=== PATIENT | female | born 1995 | race Caucasian/White ===

== ENCOUNTER 2016-09-08 23:55 | Emergency (ER) | payer MEDICAID ==
[~2016-09-08] VITALS: Ht 149.9 cm; Wt 77.1 kg
--- NOTE | 2016-09-09 00:10 | NUR ---
To bed 8 a 21 yo female bibself with c/o stabbing pain on medial chest x1 week, worse today with pain score 6/10. Patient is aaox4, ambulatory. VSS. No s/s of acute distress. Breathing even and unlabored. Skin warm and dry. Gowned. 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 Awaiting or er md bennett.
--- NOTE | 2016-09-09 00:12 | NUR ---
Dr Serna at bedside for eval.
[2016-09-09] MEDS ORDERED: ASPIRIN 81 MG TAB.CHEW PO ONE (00:30)
--- NOTE | 2016-09-09 00:33 | NUR ---
started a saline lock on lac g18, blood draw done and sent to lab.
[2016-09-09] MEDS ORDERED: ASPIRIN 81 MG TAB.CHEW ONE (00:35)
--- NOTE | 2016-09-09 00:41 | NUR ---
emt for ekg at bedside.
[2016-09-09 00:48] LABS: BASOPHILS % (AUTO) 0.4 % (0.0-2.0); EOSINOPHILS # (AUTO) 0.4 /CMM (0.0-0.7); EOSINOPHILS % (AUTO) 3.2 % (0.0-6.0); HEMATOCRIT 41 % (33-45); HEMOGLOBIN 13.4 g/dL (11.5-14.8); LYMPHOCYTES # (AUTO) 5.1 /CMM (0.8-4.8); LYMPHOCYTES % (AUTO) 45.8 % (20.0-44.0); MEAN CORPUSCULAR HEMOGLOBIN 29 PG (26.0-33.0); MEAN CORPUSCULAR HGB CONC 33 g/dl (31.0-36.0); MEAN CORPUSCULAR VOLUME 88 fL (82-100); MONOCYTES # (AUTO) 0.5 /CMM (0.1-1.30); MONOCYTES % (AUTO) 4.4 % (2.0-12.0); NEUTROPHILS # (AUTO) 5.1 /CMM (1.8-8.9); NEUTROPHILS % (AUTO) 46.2 % (43.0-81.0); PLATELET COUNT (AUTO) 367 /CMM (150-450); RDW COEFFICIENT OF VARIATION 14.1 (11.5-15.0); RED BLOOD CELL COUNT(AUTO) 4.61 MIL/uL (4.0-5.2); WHITE BLOOD COUNT (AUTO) 11.1 K/uL (4.3-11.0)
[2016-09-09 00:59] LABS: CALCIUM, SERUM 8.7 mg/dL (8.5-10.1); CARBON DIOXIDE 28 mmol/L (21-32); CHLORIDE 106 mmol/L (98-107); CREATININE 0.9 mg/dL (0.6-1.3); GFR 79 mL/min (>60); GLUCOSE 93 mg/dL (74-106); POTASSIUM 3.9 mmol/L (3.5-5.1); SODIUM SERUM 141 mmol/L (136-145); UREA NITROGEN, BLOOD 10 mg/dL (7-18)
[2016-09-09 01:07] LABS: TROPONIN I < 0.017 ng/mL (0.00-0.056)
[2016-09-09 01:12] LABS: ALANINE AMINOTRANSFERASE 17 U/L (12-78); ALBUMIN 3.6 g/dL (3.4-5.0); ALKALINE PHOSPHATASE 141 U/L (46-116); ASPARTATE AMINOTRANSFERASE 11 U/L (15-37); B-TYPE NATRIURETIC PEPTIDE 13 PG/ML (0-125); BILIRUBIN,TOTAL 0.2 mg/dL (0.2-1.0); TOTAL PROTEIN, SERUM 7.6 g/dL (6.4-8.2)
[2016-09-09] MEDS ORDERED: LORAZEPAM 1 MG TABLET ONE (01:54)
[2016-09-09] MEDS ORDERED: LORAZEPAM 1 MG TABLET PO ONE (02:00)
--- NOTE | 2016-09-09 04:24 | NUR ---
IV removed. Catheter intact and site benign. Pressure and 4x4 applied to site. No bleeding noted. Patient discharged to home in stable condition. Written and verbal after care instructions given. Patient verbalizes understanding of instruction. Patient is ambulatory with a steady gait.
[2016-09-09 04:39] VITALS: BP 118/74
== END 2016-09-09 04:12 | disposition home or self-care (01) ==
LOC: ER 23:55
DX: R07.89 Other chest pain (principal); F41.9 Anxiety disorder, unspecified; R06.02 Shortness of breath; J45.909 Unspecified asthma, uncomplicated; Z79.82 Long term (current) use of aspirin
CPT/HCPCS: 36415; 71010-TC; 80048-TC; 80076-TC; 83880; 84484-TC; 84703-TC; 85025-TC; 85378-TC; A4606; Z7610

== ENCOUNTER 2016-10-23 23:43 | Emergency (ER) | payer MEDICAID ==
[~2016-10-23] VITALS: Ht 149.9 cm; Wt 79.4 kg
--- NOTE | 2016-10-24 | NUR ---
TO BED 21 AN AAOX4, AMBULATORY, 21 YO FEMALE BIBSELF WITH C/O "VAGINAL BLEEDING SINCE FRIDAY, SOAKED 2 PADS FOR THE PAST HOUR", NAUSEA X1 WEEK, LAST VOMIT WAS YESTERDAY AM. PATIENT ALSO REPORTS HAVING SOME MILD PELVIC CRAMPING AND DIZZINESS. PATIENT ALSO REPORT PRESENCE OF BLOOD IN URINE. AFEBRILE. VSS. INITIATED COMFORT MEASURES. GOWNED. AWAITING FOR ER MD BERNAL.
--- NOTE | 2016-10-24 00:07 | NUR ---
EDILSON MENSAH AT BEDSIDE.
[2016-10-24 00:22] LABS: APPEARANCE,URINE TURBID (CLEAR); BILIRUBIN,URINE NEGATIVE (NEGATIVE); BLOOD, URINE 3+ Ery/uL (NEGATIVE); KETONES,URINE NEGATIVE (NEGATIVE); LEUKOCYTE ESTERASE ,URINE 2+ (NEGATIVE); NITRITE, URINE NEGATIVE (NEGATIVE); PH,URINE 6.5 (5.0-8.0); PROTEIN,URINE 2+ mg/dl (NEGATIVE); UGLUCOSE NEGATIVE (NEGATIVE)
[2016-10-24 00:23] LABS: COLOR,URINE DARK YELLOW (YELLOW)
[2016-10-24 00:29] LABS: ADD URINE CULTURE YES; BACTERIA,URINE Rare /HPF (None Seen); RBC,URINE TOO NUMEROUS TO COUN /HPF (0-2); SQUAMOUS EPITHELIAL CELL,UR Few /HPF (None Seen); WBC,URINE 20-30 /HPF (0-3)
[2016-10-24] MEDS ORDERED: PHENAZOPYRIDINE HCL 200 MG TABLET ONE (00:45)
[2016-10-24] MEDS ORDERED: NITROFURANTOIN/NITROFURAN MAC 100 MG CAPSULE ONE (00:45)
[2016-10-24 00:56] VITALS: BP 127/74
--- NOTE | 2016-10-24 00:56 | NUR ---
DCPatient discharged to home in stable condition. Written and verbal after care instructions given. Patient verbalizes understanding of instruction. Patient is ambulatory with steady gait, no further complaints.
[2016-10-24] MEDS ORDERED: NITROFURANTOIN/NITROFURAN MAC 100 MG CAPSULE PO ONE (01:00)
[2016-10-24] MEDS ORDERED: PHENAZOPYRIDINE HCL 200 MG TABLET PO ONE (01:00)
== END 2016-10-24 00:57 | disposition home or self-care (01) ==
LOC: ER 23:43
DX: N39.0 Urinary tract infection, site not specified (principal); J45.909 Unspecified asthma, uncomplicated; F41.9 Anxiety disorder, unspecified
CPT/HCPCS: 81000-TC; 87086-TC; 87186-TC; A4606; Z7610

== ENCOUNTER 2016-12-30 21:28 | Emergency (ER) | payer MEDICAID ==
[~2016-12-30] VITALS: Ht 149.9 cm; Wt 77.1 kg
[2016-12-30 21:46] VITALS: BP 105/75
--- NOTE | 2016-12-30 23:17 | NUR ---
INFORMED BY ADMITTING "PT LEFT"
== END 2016-12-30 23:17 | disposition left against medical advice (07) ==
LOC: ER 21:28
DX: Z53.21 Procedure and treatment not carried out due to patient leaving prior to being seen by health care provider (principal)
CPT/HCPCS: A4606; Z7610